=== PATIENT | female | born 1940 | race Caucasian/White ===

== ENCOUNTER → 2017-08-14 | Outpatient (CLI) | payer BC | END | disposition home or self-care (01) | LOC: KCIC 11:34 | DX: M17.12 Unilateral primary osteoarthritis, left knee (principal); M25.551 Pain in right hip | CPT/HCPCS: 73502; 73562 ==

== ENCOUNTER → 2017-08-22 | Outpatient (CLI) | payer BC | END | disposition home or self-care (01) | LOC: KCIC US 08:51 | DX: I65.23 Occlusion and stenosis of bilateral carotid arteries (principal) | CPT/HCPCS: 93880 ==